=== PATIENT | male | born 1975 | race Caucasian/White ===

== ENCOUNTER 2022-11-15 01:55 | Emergency (ER) | payer BC ==
[2022-11-15] MEDS ORDERED: Meclizine 25 MG Tab PO ONE (02:14)
[2022-11-15] MEDS ORDERED: Aspirin 325 MG Tab.EC PO ONE (02:15)
[2022-11-15] MEDS ORDERED: Sodium Chloride 0.9% 10 ML Syringe FLUSH PRN (02:15)
[2022-11-15] MEDS ORDERED: Sodium Chloride 0.9% 500 ML IV ONE (02:15)
[2022-11-15 02:50] LABS: ESTIMATED GFR 93 mL/min (>60); TROPONIN I HIGH SENSITIVITY 7.3 pg/mL (<=60.3)
[2022-11-15] MEDS ORDERED: Iopamidol 755 Mg/ML 100 ML Bottle IV STA (03:48)
[2022-11-15] MEDS ORDERED: Sodium Chloride 0.9% 100 ML IV SCH (04:00)
== END 2022-11-15 08:24 | disposition home or self-care (01) ==
LOC: JP.ED 01:55
DX: R42 Dizziness and giddiness (principal); Z79.899 Other long term (current) drug therapy
CPT/HCPCS: 36415; 70450; 70496; 70498; 80053; 84484; 85025; 85610; 85730; 93005; 96360; 99284; A9270; J3490; J7040; Q9967; 93010; 99283

== ENCOUNTER 2022-12-05 07:50 | Day surgery (SDC) | payer BC ==
[2022-12-05] MEDS ORDERED: fentaNYL 50 MCG/ML SDV ONE (09:09)
[2022-12-05] MEDS ORDERED: Propofol 200 MG/20 ML SDV ONE (09:09)
[2022-12-05] MEDS ORDERED: Midazolam 1 MG/ML 2 ML SDV ONE (09:09)
[2022-12-05] MEDS ORDERED: Sodium Chloride 0.9% 1,000 ML IV SCH (09:30)
== END 2022-12-05 11:11 | disposition home or self-care (01) ==
LOC: JP.SDS 07:50
PROVIDERS: ATTEND Surgery
DX: Z12.11 Encounter for screening for malignant neoplasm of colon (principal); I10 Essential (primary) hypertension; G47.33 Obstructive sleep apnea (adult) (pediatric); E66.9 Obesity, unspecified; M10.9 Gout, unspecified; Z79.899 Other long term (current) drug therapy; Z68.37 Body mass index [BMI] 37.0-37.9, adult
CPT/HCPCS: 45378; J2250; J2704; J3010